=== PATIENT | male | born 2000 | race African-American/Black ===

== ENCOUNTER 2019-08-09 04:01 | Emergency (ER) | payer SELFPAY ==
[2019-08-09] MEDS ORDERED: Ketorolac Tromethamine 30 MG/ML VIAL ONE (04:16)
[2019-08-09] MEDS ORDERED: Morphine 4 MG/ML VIAL ONE (04:16)
== END 2019-08-09 05:22 | disposition home or self-care (01) ==
LOC: ERS 04:01
DX: S71.132A Puncture wound without foreign body, left thigh, initial encounter (principal); F90.9 Attention-deficit hyperactivity disorder, unspecified type; W34.09XA Accidental discharge from other specified firearms, initial encounter
CPT/HCPCS: 96374; 96375; J1885; J2270

== ENCOUNTER 2019-09-02 15:28 | Emergency (ER) | payer SELFPAY ==
[2019-09-02] MEDS ORDERED: Lidocaine 1% (PF) 30 ML VIAL ONE (16:06)
[2019-09-02] MEDS ORDERED: Bacitracin 1 PK ONE (16:42)
--- NOTE | 2019-09-03 00:06 | OP ---
DATE OF PROCEDURE: 09/02/2019 HISTORY OF PRESENT ILLNESS: Mr. Lucia is a 19-year-old male, who was working with a new horse and caught his left index finger between a rope and a denny fence. The patient had immediate amputation of the tip of the left index finger. He was initially seen in the emergency room in [facility] and then transferred here for more definitive treatment. No other complaints elsewhere. PHYSICAL EXAMINATION: The distal pad of the distal phalanx of the left index finger is gone. There is no nail but most of the nail bed is intact. On the palmar aspect, portion of the proximal aspect of the distal phalanx is still present and the flexor tendon is still attached to that. There are sharp edges. DESCRIPTION OF PROCEDURE: A large rubber band was used at the base of the index finger as a tourniquet, and the digital block was performed using 1% lidocaine. The finger was cleansed with Betadine. The sharp edges of the remaining distal phalanx were trimmed down with a rongeur until they were smooth and a V-to-Y advancement was made on the volar aspect, which completely covered the previously exposed bone. All of the skin was repaired using 3-0 Rapide and interrupted simple sutures. The tourniquet from the base of the finger was removed and the patient had good perfusion of the skin that was advanced as well as the remaining finger. The wound was cleansed, and antibiotic impregnated gauze was placed over the finger as well as a sterile dressing and then a finger splint. The patient will be discharged on Bactrim DS. He will follow up in my office in one week. The patient may change the dressing starting tomorrow and then every other day after that. Job ID: [id number]
== END 2019-09-02 18:00 | disposition home or self-care (01) ==
LOC: ERS 15:28
DX: S68.121A Partial traumatic metacarpophalangeal amputation of left index finger, initial encounter (principal); F90.9 Attention-deficit hyperactivity disorder, unspecified type; W22.8XXA Striking against or struck by other objects, initial encounter
CPT/HCPCS: 99283; J2001

== ENCOUNTER 2019-09-13 13:17 | Emergency (ER) | payer SELFPAY | END 2019-09-13 13:47 | disposition home or self-care (01) | LOC: ERS 13:17 | DX: S68.121D Partial traumatic metacarpophalangeal amputation of left index finger, subsequent encounter (principal); F90.9 Attention-deficit hyperactivity disorder, unspecified type | CPT/HCPCS: 99282 ==

== ENCOUNTER 2019-10-14 08:20 | Emergency (ER) | payer SELFPAY | END 2019-10-14 09:15 | disposition home or self-care (01) | LOC: ERS 08:20 | DX: S68.121D Partial traumatic metacarpophalangeal amputation of left index finger, subsequent encounter (principal) | CPT/HCPCS: 99282 ==

== ENCOUNTER 2019-12-07 12:51 | Emergency (ER) | payer SELFPAY ==
--- NOTE | 2019-12-07 13:34 | RAD ---
Exam: XR Finger(s) Lt Min 2 View HISTORY: History of left index finger amputation in August. Patient states that tip is now black and hard to rahul ch. COMPARISON: 09/02/2019 FINDINGS: Again noted is amputation of the distal aspect of the left index finger at the level of the proximal aspect of the distal phalanx. There does appear to be overlying soft tissue irregularity. There is mild irregularity seen involving the remaining base of the distal phalanx of the left index finger. D eveloping osteomyelitis could not be excluded. There is subcutaneous soft tissue swelling at the volar aspect of the distal left index finger. Left index finger is held in flexion. No other interval change. No dislocation is seen. IMPRESSION: Again noted is amputation of the distal left index finger. The remaining base of the distal phalanx i ndex finger does demonstrate irregularity and lucency which could be related to the fracture, but osteomyelitis would be difficult to exclude. There is overlying soft tissue irregularity and lucency in the soft tissues with mild subcutaneous edema along the volar aspect of the distal remaining left index finger.
[2019-12-07 14:22] LABS: #Basophils 0.1 thou/uL (0.0-0.2); #Eosinphils 0.2 thou/uL (0.0-0.7); #Lymphocytes 1.8 thou/uL (1.20-3.40); #Monocytes 0.7 thou/uL (0.11-0.59); #Neutrophils 3.5 thou/uL (1.40-6.50); %Basophils 1.1 % (0.0-1.0); %Eosinophils 3.8 % (0.0-10.0); %Lymphocytes 28.3 % (28.0-48.0); %Monocytes 11.5 % (0.0-4.0); %Neutrophils 55.3 % (31.0-61.0); Hemoglobin 15.8 g/dL (14.0-18.0); Mean Corpuscular HGB CONC 33.9 g/dL (32.0-36.0); Mean Corpuscular Hemoglobin 29.2 pg (25.0-35.0); Mean Corpuscular Volume 86.1 fL (78.0-98.0); Mean Platelet Volume 7.1 fL (7.4-10.4); Platelet Count 266 thou/uL (130-400); RBC Distribution Width 11.8 % (11.5-14.5); Red Blood Cell (RBC) Count 5.43 mill/uL (4.00-5.20); White Blood Cell (WBC) Count 6.3 thou/uL (4.8-10.8)
[2019-12-07 14:41] LABS: Anion Gap 12 mmol/L (10-20); BUN (Urea Nitrogen) 11 mg/dL (8.9-20.6); CRP (Inflammatory) Less than 0.50 mg/dL (= or < 0.5); Calc. Creatinine Clearance 0 mL/min (70-130); Calcium 9.8 mg/dL (7.8-10.44); Carbon Dioxide 27 mmol/L (22-29); Chloride 104 mmol/L (98-107); Estimated GFR-MDRD Greater than 90; Glucose 84 mg/dL (70-105); Potassium 4.3 mmol/L (3.5-5.1); Sodium 139 mmol/L (136-145)
== END 2019-12-07 14:45 | disposition home or self-care (01) ==
LOC: ERS 12:51
DX: M86.9 Osteomyelitis, unspecified (principal); Z89.022 Acquired absence of left finger(s)
CPT/HCPCS: 36415; 80048; 85025; 85652; 86140